=== PATIENT | female | born 1995 | race African-American/Black ===

== ENCOUNTER 2020-07-02 14:39 | Inpatient (IN) ==
[2020-07-02 15:35] LABS: Basophils % 0.2 % (0.0-0.8); Eosinophils # 0.1 10*3/uL (0.0-0.87); Eosinophils % 0.4 % (0.00-10.9); Hematocrit 39.4 VOL% (35.7-47.0); Hemoglobin 12.4 GM/DL (12.0-16.0); Immature Granulocytes % 0.6 %; Immature Granulocytes Absolute 0.11 #; Lymphocytes # 1.8 10*3/uL (1.4-4.0); Lymphocytes % 10.6 % (21.3-54.2); Mean Corpuscular HGB Conc 31.5 GM/DL (32-36); Mean Corpuscular Volume 84.5 FL (87-102); Mean Platelet Volume 10.9 FL (9.6-12.0); Monocytes % 6.5 % (1.7-12.7); Neutrophils % 81.7 % (38.7-73.9); Platelet Count 321 T/CUMM (130-400); Red Blood Count 4.66 MC/CUMM (3.8-5.5); Red Cell Distribution Width 13.3 % (9.3-17.3); White Blood Count 17.1 T/CUMM (4-12)
[2020-07-02 15:55] LABS: Albumin 3.4 G/DL (3.4-5.0); Osmolality,Calculated 278.8 MOS/KG (273-304); Total Protein 7.7 G/DL (6.4-8.3)
[2020-07-02 16:12] LABS: Amorphous Crystals,Urine Occasional /HPF (Few); Apearance,Urine CLEAR (Clear); Bilirubin,Urine Negative (Negative); Blood, Urine Small mg/dL (Negative); Glucose,Urine (UA) 150 mg/dL (Negative); Ketones,Urine 80 mg/dL (Negative); Nitrite,Urine Negative (Negative); Protein,Urine 30 MG/DL; RBC,Urine 6 /HPF (0-4); Squamous Epithelial Cell,Urine Occasional /HPF (0-10); Urine Color Yellow (Yellow); Urine Specific Gravity > 1.060 (1.001-1.035); WBC,Urine <1 /HPF (0-6)
[2020-07-02] MEDS ORDERED: SODIUM CHLORIDE 0.9% 1,000 ML IV STA (17:21)
[2020-07-02] MEDS ORDERED: cefTRIAXone 1,000 MG in SODIUM CHLORIDE 0.9% 100 ML IV STA (17:24)
[2020-07-02] MEDS ORDERED: metroNIDAZOLE INJ 500 MG in PREMIX 1 EACH IV STA (19:27)
[2020-07-02] MEDS ORDERED: ONDANSETRON 4 MG/2 ML VIAL IV PRN (19:35)
[2020-07-02] MEDS: metroNIDAZOLE INJ 500 MG in PREMIX 1 EACH IV SCH (20:23)
[2020-07-02] MEDS ORDERED: hydrALAZINE 20 MG/1 ML VIAL IV PRN (21:05)
[2020-07-02] MEDS ORDERED: DEXTROSE 50% 25 GM/50 ML VIAL IV PRN ×2 (21:09→21:10)
[2020-07-02] MEDS ORDERED: GLUCAGON 1 MG VIAL IM PRN ×2 (21:09→21:10)
[2020-07-02] MEDS: PIPERACILLIN/TAZOBACTAM 3,375 MG in SODIUM CHLORIDE 0.9% 100 ML IV SCH (23:30)
[2020-07-02] MEDS: LACTATED RINGERS 1,000 ML IV SCH (23:30)
[2020-07-03] MEDS: metroNIDAZOLE INJ 500 MG in PREMIX 1 EACH IV SCH ×3 (04:30→20:16)
[2020-07-03 04:45] LABS: Basophils % 0.2 % (0.0-0.8); Eosinophils # 0.1 10*3/uL (0.0-0.87); Eosinophils % 0.3 % (0.00-10.9); Hematocrit 37.3 VOL% (35.7-47.0); Hemoglobin 11.7 GM/DL (12.0-16.0); Immature Granulocytes % 0.5 %; Immature Granulocytes Absolute 0.08 #; Lymphocytes # 1.1 10*3/uL (1.4-4.0); Mean Corpuscular HGB Conc 31.4 GM/DL (32-36); Mean Platelet Volume 10.5 FL (9.6-12.0); Monocytes % 9.1 % (1.7-12.7); Neutrophils % 82.9 % (38.7-73.9); Platelet Count 319 T/CUMM (130-400); Red Blood Count 4.39 MC/CUMM (3.8-5.5); Red Cell Distribution Width 13.2 % (9.3-17.3); White Blood Count 15.7 T/CUMM (4-12)
[2020-07-03] MEDS: LACTATED RINGERS 1,000 ML IV SCH ×2 (05:10→12:38)
[2020-07-03 05:19] LABS: Risk Ratio 4.22
[2020-07-03 05:38] LABS: Calcium 8.7 MG/DL (8.5-10.1); Total Protein 7.3 G/DL (6.4-8.3)
[2020-07-03] MEDS: PIPERACILLIN/TAZOBACTAM 3,375 MG in SODIUM CHLORIDE 0.9% 100 ML IV SCH ×3 (05:55→21:23)
[2020-07-03] MEDS ORDERED: INSULIN REGULAR 100 UNIT/ML SUBCUT SCH (07:30)
[2020-07-03] MEDS: LISINOPRIL/HCTZ 10-12.5 MG TABLET PO SCH (08:38)
[2020-07-03] MEDS: PANTOPRAZOLE 40 MG VIAL IV SCH (08:39)
[2020-07-03] MEDS: ACETAMINOPHEN 325 MG TABLET PO PRN ×4 (08:39→23:55)
[2020-07-03] MEDS ORDERED: LISINOPRIL/HCTZ 20-12.5 MG TABLET PO SCH (09:00)
[2020-07-03] MEDS ORDERED: DEXTROSE 50% 25 GM/50 ML VIAL IV PRN (12:37)
[2020-07-03] MEDS ORDERED: GLUCAGON 1 MG VIAL IM PRN (12:37)
[2020-07-03] MEDS: INSULIN REGULAR 100 UNIT/ML SUBCUT SCH ×2 (16:50→21:20)
[2020-07-03] MEDS ORDERED: INSULIN GLARGINE 100 UNIT/ML SUBCUT SCH (21:00)
[2020-07-04] MEDS: metroNIDAZOLE INJ 500 MG in PREMIX 1 EACH IV SCH ×3 (04:00→21:35)
[2020-07-04] MEDS: PIPERACILLIN/TAZOBACTAM 3,375 MG in SODIUM CHLORIDE 0.9% 100 ML IV SCH ×3 (05:00→22:45)
[2020-07-04] MEDS: PANTOPRAZOLE 40 MG VIAL IV SCH (09:03)
[2020-07-04] MEDS: INSULIN REGULAR 100 UNIT/ML SUBCUT SCH ×4 (09:04→21:35)
[2020-07-04] MEDS: LACTATED RINGERS 1,000 ML IV SCH ×2 (09:04→15:15)
[2020-07-04] MEDS: LISINOPRIL/HCTZ 10-12.5 MG TABLET PO SCH (09:04)
[2020-07-04] MEDS ORDERED: INSULIN GLARGINE 100 UNIT/ML SUBCUT SCH (12:52)
[2020-07-04] MEDS: ACETAMINOPHEN 325 MG TABLET PO PRN (16:33)
[2020-07-05] MEDS: metroNIDAZOLE INJ 500 MG in PREMIX 1 EACH IV SCH ×3 (03:20→21:19)
[2020-07-05] MEDS: LACTATED RINGERS 1,000 ML IV SCH ×2 (04:20→15:04)
[2020-07-05] MEDS: PIPERACILLIN/TAZOBACTAM 3,375 MG in SODIUM CHLORIDE 0.9% 100 ML IV SCH ×3 (04:20→22:20)
[2020-07-05 06:56] LABS: Basophils % 0.3 % (0.0-0.8); Eosinophils # 0.1 10*3/uL (0.0-0.87); Hematocrit 39.1 VOL% (35.7-47.0); Hemoglobin 12.2 GM/DL (12.0-16.0); Immature Granulocytes % 0.9 %; Immature Granulocytes Absolute 0.08 #; Lymphocytes # 1.4 10*3/uL (1.4-4.0); Lymphocytes % 15.9 % (21.3-54.2); Mean Corpuscular HGB Conc 31.2 GM/DL (32-36); Mean Corpuscular Volume 85.4 FL (87-102); Mean Platelet Volume 10.1 FL (9.6-12.0); Monocytes % 13.6 % (1.7-12.7); Neutrophils % 68.3 % (38.7-73.9); Platelet Count 352 T/CUMM (130-400); Red Blood Count 4.58 MC/CUMM (3.8-5.5); Red Cell Distribution Width 13.2 % (9.3-17.3)
[2020-07-05 07:15] LABS: Calcium 9.2 MG/DL (8.5-10.1); Osmolality,Calculated 283.7 MOS/KG (273-304)
[2020-07-05 08:52] LABS: INR 1.1; PT Patient Result 11.7 SECS (9.8-11.9)
[2020-07-05] MEDS: LISINOPRIL/HCTZ 10-12.5 MG TABLET PO SCH (09:12)
[2020-07-05] MEDS: INSULIN REGULAR 100 UNIT/ML SUBCUT SCH ×4 (09:12→21:19)
[2020-07-05] MEDS: PANTOPRAZOLE 40 MG VIAL IV SCH (09:12)
[2020-07-05] MEDS: ACETAMINOPHEN 325 MG TABLET PO PRN (12:19)
[2020-07-05] MEDS ORDERED: INSULIN GLARGINE 100 UNIT/ML SUBCUT SCH (13:58)
[2020-07-05] MEDS ORDERED: MIDAZOLAM 2 MG/2 ML VIAL IV ONE (14:17)
[2020-07-05] MEDS ORDERED: fentaNYL 100 MCG/2 ML VIAL IV ONE (14:17)
[2020-07-05] MEDS: LISINOPRIL/HCTZ 20-12.5 MG TABLET PO SCH (15:00)
[2020-07-05] MEDS ORDERED: fentaNYL 100 MCG/2 ML VIAL ONE (15:50)
[2020-07-05] MEDS ORDERED: MIDAZOLAM 2 MG/2 ML VIAL ONE (15:50)
[2020-07-06] MEDS: metroNIDAZOLE INJ 500 MG in PREMIX 1 EACH IV SCH ×3 (03:15→21:21)
[2020-07-06] MEDS: PIPERACILLIN/TAZOBACTAM 3,375 MG in SODIUM CHLORIDE 0.9% 100 ML IV SCH ×3 (04:20→22:33)
[2020-07-06 06:27] LABS: Basophils % 0.3 % (0.0-0.8); Eosinophils # 0.1 10*3/uL (0.0-0.87); Eosinophils % 1.5 % (0.00-10.9); Hematocrit 39.1 VOL% (35.7-47.0); Hemoglobin 12.3 GM/DL (12.0-16.0); Immature Granulocytes % 0.5 %; Immature Granulocytes Absolute 0.05 #; Lymphocytes # 1.8 10*3/uL (1.4-4.0); Lymphocytes % 19.2 % (21.3-54.2); Mean Corpuscular HGB Conc 31.5 GM/DL (32-36); Mean Corpuscular Volume 84.8 FL (87-102); Mean Platelet Volume 10.2 FL (9.6-12.0); Monocytes % 12.3 % (1.7-12.7); Neutrophils % 66.2 % (38.7-73.9); Platelet Count 365 T/CUMM (130-400); Red Blood Count 4.61 MC/CUMM (3.8-5.5); Red Cell Distribution Width 13.2 % (9.3-17.3); White Blood Count 9.1 T/CUMM (4-12)
[2020-07-06 07:02] LABS: Calcium 9.1 MG/DL (8.5-10.1); Osmolality,Calculated 282.5 MOS/KG (273-304)
[2020-07-06] MEDS: PANTOPRAZOLE 40 MG VIAL IV SCH (09:22)
[2020-07-06] MEDS: INSULIN REGULAR 100 UNIT/ML SUBCUT SCH ×4 (09:22→21:22)
[2020-07-06] MEDS: LISINOPRIL/HCTZ 20-12.5 MG TABLET PO SCH (09:23)
[2020-07-06] MEDS ORDERED: MICROFIBRILLAR COLLAGEN POWDER 1 GM CAN TOP ONE (09:41)
[2020-07-06] MEDS ORDERED: LIDOCAINE 1%/EPI INJ 20 ML VIAL ONE (09:41)
[2020-07-06] MEDS ORDERED: BUPIVACAINE MPF 0.25% 30 ML VIAL ONE (09:41)
[2020-07-06] MEDS ORDERED: SUGAMMADEX 200 MG/2 ML VIAL IV ONE (11:07)
[2020-07-06] MEDS ORDERED: DOCUSATE SODIUM 100 MG CAPSULE PO PRN (12:27)
[2020-07-06] MEDS ORDERED: ACETAMINOPHEN 325 MG TABLET PO PRN (12:27)
[2020-07-06] MEDS ORDERED: IBUPROFEN 800 MG TABLET PO PRN (12:27)
[2020-07-06] MEDS ORDERED: BISACODYL 10 MG SUPP RECTAL PRN (12:27)
[2020-07-06] MEDS ORDERED: BENZOCAINE/MENTHOL LOZENGE 18/BOX PO PRN (12:27)
[2020-07-06] MEDS ORDERED: MAGNESIUM HYDROXIDE SUSP 30 ML UDCUP PO PRN (12:27)
[2020-07-06] MEDS ORDERED: ONDANSETRON 4 MG/2 ML VIAL IV PRN ×2 (12:27→12:30)
[2020-07-06] MEDS: HYDROmorphone 2 MG/1 ML VIAL IV PRN ×2 (12:32→12:37)
[2020-07-06] MEDS ORDERED: HYDROmorphone 2 MG/1 ML VIAL ONE (12:32)
[2020-07-06] MEDS ORDERED: ONDANSETRON 4 MG/2 ML VIAL ONE ×2 (12:32→12:45)
[2020-07-06] MEDS ORDERED: LIDOCAINE 2% 5 ML VIAL ONE (12:44)
[2020-07-06] MEDS ORDERED: propofoL 200 MG/20 ML VIAL IV ONE (12:44)
[2020-07-06] MEDS ORDERED: DESFLURANE 1 UNIT/15 MINUTE INH ONE (12:44)
[2020-07-06] MEDS ORDERED: KETOROLAC 30 MG/1 ML VIAL ONE (12:45)
[2020-07-06] MEDS ORDERED: PHENYLEPHRINE 1 MG/10 ML SYRINGE IV ONE (12:45)
[2020-07-06] MEDS ORDERED: fentaNYL 100 MCG/2 ML VIAL ONE (12:45)
[2020-07-06] MEDS ORDERED: GLYCOPYRROLATE 0.4 MG/2 ML VIAL ONE (12:45)
[2020-07-06] MEDS ORDERED: ROCURONIUM 100 MG/10 ML VIAL IV ONE (12:45)
[2020-07-06] MEDS ORDERED: SUCCINYLCHOLINE 200 MG/10 ML VIAL ONE (12:45)
[2020-07-06] MEDS ORDERED: LACTATED RINGERS 1,000 ML IV ONE (12:45)
[2020-07-06] MEDS ORDERED: hydrALAZINE 20 MG/1 ML VIAL ONE (12:52)
[2020-07-06] MEDS: INSULIN LISPRO 100 UNIT/ML SUBCUT SCH ×2 (17:01→21:22)
[2020-07-06] MEDS: LACTATED RINGERS 1,000 ML IV SCH ×2 (18:10)
[2020-07-06] MEDS: INSULIN GLARGINE 100 UNIT/ML SUBCUT SCH (21:21)
[2020-07-07] MEDS: metroNIDAZOLE INJ 500 MG in PREMIX 1 EACH IV SCH ×3 (04:26→20:58)
[2020-07-07] MEDS: PIPERACILLIN/TAZOBACTAM 3,375 MG in SODIUM CHLORIDE 0.9% 100 ML IV SCH ×3 (05:36→22:16)
[2020-07-07 05:43] LABS: Basophils % 0.4 % (0.0-0.8); Eosinophils # 0.1 10*3/uL (0.0-0.87); Eosinophils % 0.8 % (0.00-10.9); Hematocrit 37.9 VOL% (35.7-47.0); Hemoglobin 11.7 GM/DL (12.0-16.0); Immature Granulocytes % 0.6 %; Immature Granulocytes Absolute 0.07 #; Lymphocytes # 1.8 10*3/uL (1.4-4.0); Lymphocytes % 16.2 % (21.3-54.2); Mean Corpuscular HGB Conc 30.9 GM/DL (32-36); Mean Platelet Volume 9.6 FL (9.6-12.0); Monocytes % 10.1 % (1.7-12.7); Neutrophils % 71.9 % (38.7-73.9); Platelet Count 375 T/CUMM (130-400); Red Blood Count 4.46 MC/CUMM (3.8-5.5); Red Cell Distribution Width 13.2 % (9.3-17.3); White Blood Count 11.2 T/CUMM (4-12)
[2020-07-07] MEDS: ENOXAPARIN 40 MG/0.4 ML SYRINGE SUBCUT SCH (07:26)
[2020-07-07] MEDS: INSULIN REGULAR 100 UNIT/ML SUBCUT SCH ×4 (08:46→20:59)
[2020-07-07] MEDS: INSULIN LISPRO 100 UNIT/ML SUBCUT SCH ×4 (08:47→20:59)
[2020-07-07] MEDS: LISINOPRIL/HCTZ 20-12.5 MG TABLET PO SCH (08:48)
[2020-07-07] MEDS: amLODIPine 5 MG TABLET PO SCH (08:48)
[2020-07-07] MEDS: PANTOPRAZOLE 40 MG VIAL IV SCH (08:48)
[2020-07-07] MEDS: LACTATED RINGERS 1,000 ML IV SCH ×5 (12:59→14:14)
[2020-07-07] MEDS: INSULIN GLARGINE 100 UNIT/ML SUBCUT SCH (20:58)
[2020-07-08] MEDS: LACTATED RINGERS 1,000 ML IV SCH ×6 (03:13→17:06)
[2020-07-08] MEDS: metroNIDAZOLE INJ 500 MG in PREMIX 1 EACH IV SCH ×2 (04:22→12:36)
[2020-07-08] MEDS: PIPERACILLIN/TAZOBACTAM 3,375 MG in SODIUM CHLORIDE 0.9% 100 ML IV SCH ×2 (05:56→13:07)
[2020-07-08] MEDS: ENOXAPARIN 40 MG/0.4 ML SYRINGE SUBCUT SCH (05:56)
[2020-07-08] MEDS: INSULIN REGULAR 100 UNIT/ML SUBCUT SCH ×3 (07:33→17:07)
[2020-07-08] MEDS: INSULIN LISPRO 100 UNIT/ML SUBCUT SCH ×2 (07:34→12:01)
[2020-07-08] MEDS: amLODIPine 5 MG TABLET PO SCH (09:34)
[2020-07-08] MEDS: LISINOPRIL/HCTZ 20-12.5 MG TABLET PO SCH (09:34)
[2020-07-08] MEDS: PANTOPRAZOLE 40 MG VIAL IV SCH (09:35)
[2020-07-08] MEDS: ACETAMINOPHEN 325 MG TABLET PO PRN (11:18)
[2020-07-08 11:45] VITALS: BP 155/84
[2020-07-08] MEDS ORDERED: INSULIN LISPRO 100 UNIT/ML SUBCUT SCH (16:30)
[2020-07-08] MEDS ORDERED: INSULIN NPH/REGULAR 70/30 100 UNIT/ML SUBCUT SCH ×2 (16:30)
[2020-07-08] MEDS ORDERED: INSULIN GLARGINE 100 UNIT/ML SUBCUT SCH (21:00)
== END 2020-07-08 17:00 | disposition home or self-care (01) | DRG 742 ==
LOC: EDBD → EDUNIT# → N.EDINP 14:39 → N.ED 14:39 → N.3E 22:40
PROVIDERS: ADMIT Specialist; ATTEND Specialist